=== PATIENT | female | born 1985 | race Caucasian/White ===

== ENCOUNTER 2023-02-03 10:21 | Emergency (ER) | payer OTHER, SELFPAY ==
[2023-02-03 10:30] VITALS: BP 153/86; PULSE 86; RESP 16; TEMP 36.4; O2SAT 98
--- NOTE | 2023-02-03 10:48 | ED.URI ---
HPI - URI/Sore Throat General Chief Complaint: Upper Respiratory Infection Stated Complaint: Sore Throat History of Present Illness HPI Narrative: patient presents with nasal congestion cough and sore throat. No trouble swallowing no drooling. Patient is not taking anything [id number] for her symptoms. Related Data Home Medications Medication Instructions Recorded Confirmed hydrochlorothiazide 25 mg tablet mg 02/03/23 losartan 100 mg tablet mg 02/03/23 medroxyprogesterone 10 mg tablet mg 02/03/23 Allergies Allergy/AdvReac Type Severity Reaction Status Date / Time No Known Drug Allergies Allergy Verified 09/14/11 14:41 Review of Systems Review of Systems: CONSTITUTIONAL: Denies chills, or sweats. Reports fever and generalized body aches EYES: Denies visual changes, redness, or discharge. ENT: Denies otalgia. Reports nasal congestion runny nose and sore throat CARDIOVASCULAR: Denies chest pain, palpitations, or edema. RESPIRATORY: Denies dyspnea. Reports occasional cough GASTROINTESTINAL: Denies abdominal pain, nausea, vomiting, or diarrhea. GENITOURINARY: Denies dysuria or hematuria. SKIN: Denies rash or itching. MUSCULOSKELETAL: Denies back pain, joint pain, or myalgia. Reports generalized body aches NEUROLOGIC: Denies headache, numbness, or weakness. PSYCHIATRIC: Denies anxiety or depression. PMFSH Comments At time of signature, agree with nursing past medical, surgical, social and family history. There is no relevant family history pertinent to the presenting complaint Exam Narrative: The patient is a well-developed, well-nourished in no acute distress. SKIN: Skin is warm and dry without erythema, swelling or exudate. There is good turgor. No tenting. HEAD: Atraumatic. Normocephalic. No temporal or scalp tenderness. EYES: Moist and bright. Sclera and conjunctivae normal. No discharge. PERRLA. Extraocular motions intact. Gross visual acuity intact. EARS: Pinna is normal shape and contour. Clear external auditory canals. TM pearly hemphill with good cone of light, no erythema or suppuration. Bilateral cerumen noted no gross hearing deficit. NOSE: pink, moist mucosa with good air movement. Clear rhinorrhea without nasal flaring. Septum midline. Mouth: moist mucous membranes. THROAT; mild erythema noted to posterior oropharynx with moderate postnasal drainage. Without exudate or ulceration.. Uvula midline. Normal movement of soft palate. NECK: Supple and nontender with full range of motion without discomfort. No meningeal signs. LUNGS: Equal and bilateral breath sounds without wheezes, rales or rhonchi. CHEST: The chest wall is without retractions or use of accessory muscles. HEART: Has a regular rate and rhythm without murmur, gallops, click or rub. ABDOMEN: Soft, nontender with positive active bowel sounds. No rebound tenderness. EXTREMITIES: Without cyanosis, clubbing or edema. Equal 2+ distal pulses and 2 second capillary refill noted. NEUROLOGIC: alert, active, . The patient moves all extremities with normal muscle strength. Normal muscle tone is noted. Normal coordination is noted. NO focal neurological findings noted. Course Course Level of Care: Express Care Visit Vital Signs Vital signs: Vital Signs Temperature 36.4 C L 02/03/23 10:30 Pulse Rate 86 02/03/23 10:30 Respiratory Rate 16 02/03/23 10:30 Blood Pressure 153/86 H 02/03/23 10:30 Pulse Oximetry 98 02/03/23 10:30 Oxygen Delivery Room Air 02/03/23 10:30 Temperature 36.4 C L 02/03/23 10:30 Pulse Rate 86 02/03/23 10:30 Respiratory Rate 16 02/03/23 10:30 Blood Pressure 153/86 H 02/03/23 10:30 Pulse Oximetry 98 02/03/23 10:30 Oxygen Delivery Room Air 02/03/23 10:30 Discharge Plan Discharge Clinical Impression: Pharyngitis, Viral infection Patient Disposition: Home, Self-Care Condition: Stable Instructions: Viral Syndrome (ED) Additional Instructions: congestion
== END 2023-02-03 11:09 | disposition home or self-care (01) ==
PROVIDERS: Emergency Provider Nurse Practitioner Family
DX: J02.9 Acute pharyngitis, unspecified (principal); B34.9 Viral infection, unspecified; Z20.822 Contact with and (suspected) exposure to COVID-19; E78.00 Pure hypercholesterolemia, unspecified; I10 Essential (primary) hypertension
CPT/HCPCS: 87081; 87426; 87880; 99213; C9803; G0463